=== PATIENT | female | born 1975 | race Caucasian/White ===

== ENCOUNTER 2023-09-08 19:58 | Emergency (ER) | payer OTHER ==
[~2023-09-08] VITALS: Ht 157.5 cm; Wt 66.7 kg
[2023-09-08 20:26] VITALS: BP 115/63; PULSE 86; RESP 18; TEMP 98.8; O2SAT 98
[2023-09-08 20:53] LABS: APPEARANCE,URINE CLEAR (CLEAR); BILIRUBIN,URINE NEGATIVE (NEGATIVE); BLOOD, URINE NEGATIVE (NEGATIVE); COLOR,URINE YELLOW (YELLOW); LEUKOCYTE ESTERASE ,URINE TRACE (NEGATIVE); NITRITE, URINE NEGATIVE (NEGATIVE); PROTEIN,URINE NEGATIVE (NEGATIVE); UGLUCOSE NEGATIVE (NEGATIVE); UROBILINOGEN,URINE 0.2 EU/dL (0.2 - 1)
[2023-09-08 21:00] VITALS: BP 115/63; PULSE 86; RESP 18; TEMP 98.8; O2SAT 98
[2023-09-08 21:03] LABS: BACTERIA,URINE 10-30 (MOD) /HPF (None Seen); RBC,URINE 0-5 /HPF (0-5); SQUAMOUS EPITHELIAL CELL,UR 4-10 (MOD) /LPF (0-3 (FEW))
[2023-09-08] MEDS ORDERED: PHEN-1877 PO (21:23)
[2023-09-08] MEDS ORDERED: CIPR500T4 PO (21:23)
[2023-09-08] MEDS ORDERED: IBUP-2213 PO (21:23)
[2023-09-08] MEDS: KETOROLAC 60 MG/2 ML VIAL IM ONE (21:25)
== END 2023-09-08 21:35 | disposition home or self-care (01) ==
LOC: MED 19:58
DX: N12 Tubulo-interstitial nephritis, not specified as acute or chronic (principal); F17.200 Nicotine dependence, unspecified, uncomplicated; Z79.899 Other long term (current) drug therapy
CPT/HCPCS: 81001; 81025; 87086; 96372; 99283; J1885